=== PATIENT | female | born 1985 | race Caucasian/White ===

== ENCOUNTER 2018-04-21 23:19 | Inpatient (IN) | payer BC ==
[~2018-04-21 23:19] MED LIST: Buffered Lidocaine 0.9% SYRIN* 5 ML/SYR SYRINGE INTRADERM ONE
--- NOTE | 2018-04-22 00:16 | HP ---
General Information - General Information Maternal Age: 33 Grav: 3 Para: 1 SAB: 0 IEA: 1 Estimated Due Date: 04/22/18 Determined By: Early Ultrasound Maternal Blood Type and Rh: O Positive - Results this Serology/RPR Result: Non-Reactive Rubella Result: Non-Immune HBsAg Result: Negative HIV Result: Negative GBS Culture Result: Negative Past Medical History Delivery History: Hx C/Section - efw at 38 weeks 7lbs 7ozs Pertinent Past Medical History: See Records Pertinent Past Surgical History: See Records Pertinent Family History: See Records - Antepartal Records Antepartal Records: Reviewed, Complicated by: - previous section for a 10 lb breech Review of Systems Constitutional: Uncomfortable Gastrointestinal: No Nausea/Vomiting Genitourinary: Leaking Fluid Musculoskeletal: Contractions Movement: Normal Exam Allergies/Adverse Reactions: Allergies cefaclor Allergy (Unknown, Verified 04/20/18 06:38) Hives - Measurements Height: 5 ft 9 in Weight: 175 lb Weight in lbs: [phone] Body Mass Index (BMI): 25.8 Pre- Weight: 160 lb Weight Gained This : 15 lbs and 0 ozs - Exam Extremities: Edema - 1 + Heart: Normal Rhythm/Heart Sounds HEENT: No Significant Findings Lungs: Clear Bilaterally Reflexes: DTR 2+ Targeted Exam Findings Cervical Exam: 2cm Effacement: 100% Station: -1 Presenting Part: Vertex Membrane Status: Leaking Amniotic Fluid Evaluation: Gross Rupture EFM Findings - External Monitor Findings External Monitor Findings: Accelerations Present, Variability Moderate Contractions: Regular, Moderate, 45-90 Seconds Assessment/Plan - Assessment previous section in early labor - Obstetrical Risk Factors Obstetrical Risk Factors: Gestational Diabetes, Previous C/Section in Labor - Plan Plan: Admit - Anticipate Vaginal Delivery
[2018-04-22 00:35] LABS: ABS Basophils 0 10^3/ul (0-0.2); ABS Eosinophils 0.1 10^3/ul (0-0.6); ABS Lymphocytes 2.4 10^3/ul (1.0-4.8); ABS Monocytes 0.8 10^3/ul (0-0.8); ABS Neutrophils 6.8 10^3/ul (1.5-7.7); ABS Nucleated RBC 0 10^3/ul; Eosinophil % 0.5 % (0-6); Hematocrit 37 % (35-47); Hemoglobin 12.6 g/dl (12.0-16.0); Lymphocyte % 23.5 % (25-47); Mean Corpuscular HGB Conc 34 g/dl (31-36); Mean Corpuscular Hemoglobin 28 pg (27-31); Mean Corpuscular Volume 83 fL (80-97); Mean Platelet Volume 9.7 um3 (7.4-10.4); Nucleated Red Blood Cells % 0.1; Platelet Count 182 10^3/ul (150-450); Red Blood Count 4.44 10^6/ul (4.00-5.40); Red Cell Distribution Width 14 % (10.5-15); White Blood Count 10.2 10^3/ul (3.5-10.8)
[2018-04-22] MEDS ORDERED: Ondansetron INJ* 2 MG/ML VIAL IV PRN (04:01)
--- NOTE | 2018-04-22 04:03 | PN ---
Progress Note - Progress Note Date of Service: 04/22/18 Note: fhr 120 with moderate variabilty and acceleration ve 3cm 80% -1 station contraction q 4 minutes discussed epidural /iv narcotics pt wants antinausea for now
[2018-04-22] MEDS ORDERED: Nalbuphine* 10 MG/ML 1 ML VIAL IV PRN (04:05)
[2018-04-22] MEDS ORDERED: Promethazine INJ(RESTRICTED)* 25 MG/ML 1 ML VIAL IV PRN (04:06)
[2018-04-22] MEDS ORDERED: Famotidine IV* 10 MG/ML 2 ML (20 mg) IV ONE (06:00)
[2018-04-22] MEDS ORDERED: OBEPIDURAL* 250 ML EPIDURAL ONE (08:53)
[2018-04-22] MEDS ORDERED: Sodium Citrate/Citric Acid* 15 ML UDC PO PRN (10:09)
[2018-04-22] MEDS ORDERED: Phenylephrine IV* 40 MCG/ML 10 ML SYRINGE IV PUSH PRN ×2 (10:09)
[2018-04-22] MEDS ORDERED: Famotidine TAB* 20 MG PO PRN (10:09)
[2018-04-22] MEDS ORDERED: Oxytocin in LR* 20 UNITS/1,000 ML BAG IVPB ONE (10:55)
[2018-04-22] MEDS ORDERED: OBEPIDURAL* 250 ML EPIDURAL SCH (11:00)
[2018-04-22] MEDS ORDERED: Oxytocin in LR* 20 UNITS/1,000 ML BAG IVPB SCH ×2 (12:00→20:00)
[2018-04-22] MEDS ORDERED: Measles, Mumps,Rubella VACC* 0.5 ML/VIAL SUBCUT ONE (19:33)
[2018-04-22] MEDS ORDERED: oxyCODONE/Acetamin 5/325 MG* TAB PO PRN (19:37)
[2018-04-22] MEDS ORDERED: Simethicone TAB* 80 MG TAB.CHEW PO SCH (21:00)
[2018-04-22] MEDS: Ibuprofen TAB* 600 MG PO PRN (21:27)
[2018-04-22] MEDS: Docusate CAP* 100 MG PO SCH (21:27)
--- NOTE | 2018-04-22 22:30 | PROCNOTE ---
[facility] OB: Delivery Note - Delivery A Date of : 04/22/18 Time of : 18:34 Score 1 Minute: 8 Score 5 Minutes: 9 Gestational Age in Weeks and Days at Delivery: 40 Weeks and 0 Days Delivery Method: Low Vacuum Extraction, Vaginal Labor: Spontaneous Amniotic Fluid: Clear Estimated Blood Loss: 600 Anesthesia/Analgesia: CEI for Labor Delivered By: Aidan Burton - Nursery Level of Nursery: Regular/Bedside - Perineum Perineal Injury: Midline Episiotomy, 3rd Degree Extension Perineal Repair: By Delivering Practioner - End-to-end sphincteroplasty with 2- 0 Vicyrl stitches, then remainder of perineum repaired with 3-0 Vicryl Rapide. 1% lidocaine injected prior to episiotomy and repair. - Events Delivery Events of Note: Pitocin During Labor, Pitocin Only After Delivery - Additional Delivery Notes Additional Delivery Notes: Pt admitted with SROM and early spontaneous labor. Received Nubain initially. When 4cm, she received an epidural. She made good progress to C/C/+2 and began pushing. She progressed to about +3 with about 90+ min of pushing but could not progress past this and she was approaching exhaustion. Discussed vacuum assistance, reviewed risks of scalp bruising or bleeding and possible more severe laceration. Pt desired to proceed. Coffman removed. Pelvis felt to be adequate for delivery of this infant. status was very good with continuous monitoring. Kiwi vacuum placed over mid-sagittal line. With about 4 sets of pushes, pt was able to push with good effort to deliver the head in a controlled fashion over a midline episiotomy. This was performed because the perineal skin was not stretching, and pt was not tolerating the severe pain when the head was very low. There was a compound posterior arm that resulted in the additional extension. Infant cried quickly and had excellent tone. Placenta delivered spontaneously and intact. IV pitocin given. There was moderate bleeding initially which slowed with fundal massage. Fundus then very firm. See repair notes.
[2018-04-22] MEDS: Acetaminophen TAB* 325 MG PO PRN (23:23)
[2018-04-23] MEDS: Witch Hazel PAD* JAR TOPICAL PRN (00:21)
[2018-04-23] MEDS: Dibucaine 1% 28.35 GM TUBE PR PRN ×2 (00:22→09:44)
[2018-04-23] MEDS: Ibuprofen TAB* 600 MG PO PRN ×4 (03:26→21:54)
[2018-04-23] MEDS: Acetaminophen TAB* 325 MG PO PRN ×5 (04:18→21:53)
[2018-04-23 07:06] LABS: ABS Basophils 0 10^3/ul (0-0.2); ABS Eosinophils 0 10^3/ul (0-0.6); ABS Lymphocytes 1.6 10^3/ul (1.0-4.8); ABS Monocytes 1.1 10^3/ul (0-0.8); ABS Neutrophils 15.4 10^3/ul (1.5-7.7); ABS Nucleated RBC 0 10^3/ul; Eosinophil % 0.1 % (0-6); Hematocrit 30 % (35-47); Hemoglobin 10.1 g/dl (12.0-16.0); Lymphocyte % 8.9 % (25-47); Mean Corpuscular HGB Conc 34 g/dl (31-36); Mean Corpuscular Hemoglobin 28 pg (27-31); Mean Corpuscular Volume 83 fL (80-97); Mean Platelet Volume 9.3 um3 (7.4-10.4); Nucleated Red Blood Cells % 0; Platelet Count 157 10^3/ul (150-450); Red Cell Distribution Width 14 % (10.5-15); White Blood Count 18.2 10^3/ul (3.5-10.8)
[2018-04-23] MEDS ORDERED: Ferrous Sulfate TAB* 325 MG ONE (08:19)
[2018-04-23] MEDS: Docusate CAP* 100 MG PO SCH ×3 (08:21→21:06)
[2018-04-23] MEDS: Ferrous Gluconate TAB* 324 MG TAB PO SCH (21:05)
[2018-04-24] MEDS: Acetaminophen TAB* 325 MG PO PRN ×2 (02:01→05:59)
[2018-04-24 08:28] VITALS: BP 103/60
[2018-04-24] MEDS: Ferrous Gluconate TAB* 324 MG TAB PO SCH (08:54)
[2018-04-24] MEDS: Docusate CAP* 100 MG PO SCH (08:54)
[2018-04-24] MEDS: Ibuprofen TAB* 600 MG PO PRN ×2 (08:54→15:00)
[2018-04-24] MEDS ORDERED: Acetaminophen TAB* 325 MG ONE (09:48)
[2018-04-24] MEDS ORDERED: Acetaminophen TAB* 325 MG PO ONE ×2 (10:00→15:00)
[2018-04-24] MEDS ORDERED: Lidocaine 4% TOPICAL* 50 ML TOP.SOLN TOPICAL ONE (11:00)
[2018-04-24] MEDS ORDERED: Caffeine Citrate ORAL* 20 MG/ML ORAL.SOLN 3 ML (preservative free) PO ONE (12:40)
[2018-04-24] MEDS: Dibucaine 1% 28.35 GM TUBE PR PRN (17:01)
[2018-04-24] MEDS: Witch Hazel PAD* JAR TOPICAL PRN (17:01)
== END 2018-04-24 20:10 | disposition home or self-care (01) | DRG 542 ==
LOC: MCHOB 23:19
PROVIDERS: ADMIT Obstetrics & Gynecology; ATTEND Obstetrics & Gynecology
PROC: 0W8NXZZ Division of Female Perineum, External Approach (ICD-10-PCS; principal; 2018-04-22)
PROC: 4A1HXCZ Monitoring of Products of Conception, Cardiac Rate, External Approach (ICD-10-PCS; 2018-04-22)
PROC: 0DQR0ZZ Repair Anal Sphincter, Open Approach (ICD-10-PCS; 2018-04-22)
PROC: 10D07Z6 Extraction of Products of Conception, Vacuum, Via Natural or Artificial Opening (ICD-10-PCS; 2018-04-22)
DX: O34.211 Maternal care for low transverse scar from previous cesarean delivery (principal); O72.1 Other immediate postpartum hemorrhage; O70.20 Third degree perineal laceration during delivery, unspecified; O24.424 Gestational diabetes mellitus in childbirth, insulin controlled; O32.6XX0 Maternal care for compound presentation, not applicable or unspecified; O32.2XX0 Maternal care for transverse and oblique lie, not applicable or unspecified; Z88.1 Allergy status to other antibiotic agents; Z90.49 Acquired absence of other specified parts of digestive tract; Z3A.40 40 weeks gestation of pregnancy; Z37.0 Single live birth
CPT/HCPCS: 36415; 85025; 86850; 86900; 86901; 90707; A9270-GY; J2300; J2550